=== PATIENT | female | born 1945 ===

== ENCOUNTER 2018-12-21 13:59 | Emergency (ER) | payer MEDICARE, OTHER ==
[2018-12-21 14:31] VITALS: RESP 18; O2SAT 99
--- NOTE | 2018-12-21 14:37 | RAD ---
Date of service: 12/21/2018 PROCEDURE: Radiographs of the Chest and Right Ribs. HISTORY: s/p fall COMPARISON: None available. TECHNIQUE: Frontal radiograph of the chest and multiple oblique radiographs of the right ribs were obtained. 4 views obtained. FINDINGS: RIGHT RIBS: No fracture or focal lesion visualized. LUNGS: Clear. PLEURA: No pneumothorax or pleural fluid. CARDIOVASCULAR: Normal cardiac size. No pulmonary vascular congestion. No aortic atherosclerotic calcification present OTHER FINDINGS: None. IMPRESSION: Unremarkable radiographs of the chest and right ribs. No right rib fracture.
--- NOTE | 2018-12-21 14:42 | C.PDOC ---
History Of Present Illness 73 y/o female pt with hx of chronic pain to right shoulder and HTN presents to the ER c/o right rib pain and left knee pain s/p fall today. Pt reports she was walking when she missed a step and landed on her left knee and her right rib hit a piece of metal. Pt denies head trauma and LOC. Pt is able to ambulate with pain. - HPI Time Seen by Provider: 12/21/18 14:08 Chief Complaint (Nursing): Rib Injury History Per: Patient History/Exam Limitations: no limitations Injury Occurred (Timing): Just Before Arrival Past Medical History Reviewed: Historical Data, Nursing Documentation, Vital Signs Vital Signs: Last Vital Signs Temp 98.2 F 12/21/18 14:03 Pulse 75 12/21/18 14:03 Resp 18 12/21/18 14:03 BP 162/92 H 12/21/18 14:03 Pulse Ox 99 12/21/18 14:03 - Medical History PMH: HTN Family History: States: No Known Family Hx - Social History Hx Tobacco Use: No Hx Alcohol Use: No Hx Substance Use: No - Immunization History Hx Tetanus Toxoid Vaccination: No Hx Influenza Vaccination: Yes Hx Pneumococcal Vaccination: No Review Of Systems Except As Marked, All Systems Reviewed And Found Negative. Constitutional: Negative for: Other (head trauma ) Musculoskeletal: Positive for: Other (right rib pain; left knee pain ) Neurological: Negative for: Other (LOC) Physical Exam - Physical Exam Appears: Non-toxic, No Acute Distress Skin: Warm, Dry Head: Atraumatic, Normacephalic, No Tenderness, No Swelling, No Abrasion, No Laceration Eye(s): bilateral: Normal Inspection, PERRL, EOMI Nose: Normal Oral Mucosa: Moist Neck: Normal ROM, Trachea Midline, Supple, No Other (JVD) Chest: Symmetrical, No Deformity Cardiovascular: Rhythm Regular Respiratory: Normal Breath Sounds Gastrointestinal/Abdominal: Soft, Tenderness (to right rib ) Extremity: Normal ROM (x4), Tenderness (to left knee ), No Pedal Edema, No Calf Tenderness, Capillary Refill (<2 sec ), No Deformity, No Swelling, Other (able to extend and flex but it is painful) Pulses: Left Dorsalis Pedis: Normal, Right Dorsalis Pedis: Normal Neurological/Psych: Oriented x3, Normal Speech ED Course And Treatment O2 Sat by Pulse Oximetry: 99 (RA) Pulse Ox Interpretation: Normal - Other Rad left knee XR X-Ray: Read By Radiologist Interpretation: Accession No. : [id number]. Patient Name / ID : CLIFFORD Nuno / [id number]. Exam Date : 12/21/2018 14:23:00 ( Approved ). Study Comment : Sex / Age : F / 73Y. Creator : Latrice Canseco MD. Dictator : Latrice Canseco MD. Assistant Professor Of Spanish : Business Education Instructor : Latrice Canseco MD. Approver2 : Report Date : 12/21/2018 15:30:32. My Comment : . Date of service: 12/21/2018. PROCEDURE: Left Knee Radiographs. HISTORY: Pain. COMPARISON: None. TECHNIQUE: 2 views obtained. FINDINGS: BONES: Normal. No fracture. JOINTS: Mild osteoarthritic changes. Well corticated small ossicles noted at the left knee joint likely represent calcified loose body. JOINT EFFUSION: None. OTHER FINDINGS: None. IMPRESSION: No evidence of acute fracture or dislocation. No evidence of significant joint effusion. Mild osteoarthritic changes. Small calcified loose bodies in the left knee joint. ribs with chest XR X-Ray: Read By Radiologist Interpretation: Accession No. : [id number]. Patient Name / ID : CLIFFORD Nuno / [id number]. Exam Date : 12/21/2018 14:22:47 ( Approved ). Study Comment : Sex / Age : F / 73Y. Creator : Latrice Canseco MD. Dictator : Latrice Canseco MD. Assistant Professor Of Spanish : Business Education Instructor : Latrice Canseco MD. Approver2 : Report Date : 12/21/2018 14:34:17. My Comment : . Date of service: 12/21/2018. PROCEDURE: Radiographs of the Chest and Right Ribs. HISTORY: s/p fall. COMPARISON: None available. TECHNIQUE: Frontal radiograph of the chest and multiple oblique radiographs of the right ribs were obtained. 4 views obtained. FINDINGS: RIGHT RIBS: No fracture or focal lesion visualized. LUNGS: Clear. PLEURA: No pneumothorax or pleural fluid. CARDIOVASCULAR: Normal cardiac size. No pulmonary vascular congestion. No aortic atherosclerotic calcification present. OTHER FINDINGS: None. IMPRESSION: Unremarkable radiographs of the chest and right ribs. No right rib fracture. Medical Decision Making Medical Decision Making: Impression: 73 y/o female pt presents to the ER with left knee and right rib pain r/o fx left knee pain r/o fx rib Plans: -- left knee XR -- right rib XR -- Toradol -- percocet Pt feels better and is stable for d/c Disposition - Disposition Referrals: [facility] [Outside] [facility] [Outside] [facility] [Outside] Disposition: HOME/ ROUTINE Disposition Time: 16:03 Condition: GOOD Additional Instructions: Please take Motrin for pain, use incentive spirometry as directed. Follow up with your pcp. Prescriptions: Ibuprofen [Motrin] 600 mg PO Q6 #20 tab Instructions: Contusion (DC), Bruised Rib (DC) Forms: [employer] (Slovenian) - Clinical Impression Clinical Impression: Bruised rib, Contusion - Scribe Statement The provider has reviewed the documentation as recorded by the Scribnilesh Qureshi Do Provider Attestation: All medical record entries made by the Scribe were at my direction and personally dictated by me. I have reviewed the chart and agree that the record accurately reflects my personal performance of the history, physical exam, medical decision making, and the department course for this patient. I have also personally directed, reviewed, and agree with the discharge instructions and disposition.
[2018-12-21] MEDS ORDERED: Oxycodone/Acetaminophen 5/325 mg Tab PO ONE (15:14)
[2018-12-21] MEDS ORDERED: Oxycodone/Acetaminophen 5/325 mg Tab ONE (15:21)
--- NOTE | 2018-12-21 15:34 | RAD ---
Date of service: 12/21/2018 PROCEDURE: Left Knee Radiographs. HISTORY: Pain. COMPARISON: None. TECHNIQUE: 2 views obtained. FINDINGS: BONES: Normal. No fracture. JOINTS: Mild osteoarthritic changes. Well corticated small ossicles noted at the left knee joint likely represent calcified loose body. JOINT EFFUSION: None. OTHER FINDINGS: None. IMPRESSION: No evidence of acute fracture or dislocation. No evidence of significant joint effusion. Mild osteoarthritic changes. Small calcified loose bodies in the left knee joint.
[2018-12-21 15:42] VITALS: BP 148/86; PULSE 78; TEMP 98.4
== END 2018-12-21 16:05 | disposition home or self-care (01) ==
LOC: C.ER 13:59
DX: S20.211A Contusion of right front wall of thorax, initial encounter (principal); W10.9XXA Fall (on) (from) unspecified stairs and steps, initial encounter; Y93.01 Activity, walking, marching and hiking
CPT/HCPCS: 71101; 73562; 96372; 99284; J1885